=== PATIENT | female | born 1955 | race Native Hawaiian/Other Pacific Islander ===

== ENCOUNTER 2016-09-13 08:12 | Outpatient (CLI) | payer OTHER ==
[~2016-09-13 08:12] MED LIST: CELEXA20 MG PO; HYDR12.54 PO; LISI20TA24 PO; VESICARE5 MG PO; WARF10TA5 PO; ZANTAC300 MG PO
[2016-09-13] MEDS ORDERED: LISI20TA31 OR (09:08)
[2016-09-13] MEDS ORDERED: HYDR12.54 PO (09:11)
[2016-09-13] MEDS ORDERED: MELOXICAM15 MG OR (09:14)
[2016-09-13] MEDS ORDERED: CARV3.12 PO (09:14)
[2016-09-13] MEDS ORDERED: FURO20TA67 PO (09:15)
[2016-09-13] MEDS ORDERED: CENTRUM SILVER OR (09:15)
[2016-09-13] MEDS ORDERED: EQ ASPIRIN325 MG OR (09:16)
[2016-09-13] MEDS ORDERED: ZANTAC 75 PO (09:17)
[2016-09-13] MEDS ORDERED: METFTAB PO (09:17)
[2016-09-13] MEDS ORDERED: TRAM50TA PO (09:18)
== END 2016-09-13 08:31 | disposition short-term general hospital (02) ==
LOC: AMB 08:12
DX: R53.1 Weakness (principal)
CPT/HCPCS: A0425; A0427

== ENCOUNTER 2016-09-13 08:32 | Observation (INO) | payer OTHER ==
[2016-09-13] VITALS (15 sets, daily range): BP systolic 129–164; BP diastolic 72–108; TEMP 97.9–98.1; Ht 176.5 cm; Wt 158.3 kg
[~2016-09-13] VITALS: Ht 176.5 cm; Wt 158.3 kg
[2016-09-13] MEDS ORDERED: LISI20TA31 OR (09:08)
[2016-09-13] MEDS ORDERED: HYDR12.54 PO (09:11)
[2016-09-13] MEDS ORDERED: CARV3.12 PO (09:14)
[2016-09-13] MEDS ORDERED: MELOXICAM15 MG OR (09:14)
[2016-09-13] MEDS ORDERED: FURO20TA67 PO (09:15)
[2016-09-13] MEDS ORDERED: CENTRUM SILVER OR (09:15)
[2016-09-13] MEDS ORDERED: EQ ASPIRIN325 MG OR (09:16)
[2016-09-13] MEDS ORDERED: METFTAB PO (09:17)
[2016-09-13] MEDS ORDERED: ZANTAC 75 PO (09:17)
[2016-09-13] MEDS ORDERED: TRAM50TA PO (09:18)
[2016-09-13 10:02] LABS: PLATELET COUNT 231 K/uL (152-353)
[2016-09-13 10:10] LABS: POTASSIUM 3.8 mmol/L (3.6-5.2); SODIUM 135 mmol/L (136-145)
[2016-09-13 11:56] LABS: PARTIAL THROMBOPLASTIN TIME 25.2 SECONDS (24.5-33.6)
[2016-09-14] VITALS: BP 139/72; TEMP 97.8
[2016-09-14 04:00] VITALS: BP 144/91; TEMP 97.4
[2016-09-14 05:19] LABS: PLATELET COUNT 229 K/uL (152-353)
[2016-09-14 05:36] LABS: POTASSIUM 3.4 mmol/L (3.6-5.2); SODIUM 134 mmol/L (136-145)
[2016-09-14 08:00] VITALS: BP 154/84; TEMP 96.6
[2016-09-14 12:00] VITALS: BP 152/83; TEMP 97.9
[2016-09-14 16:00] VITALS: BP 152/83; TEMP 98
[2016-09-14 20:00] VITALS: BP 127/77; TEMP 97.9
[2016-09-15 00:04] VITALS: BP 111/66; TEMP 97.9
[2016-09-15 05:48] VITALS: BP 144/86; TEMP 97.6
[2016-09-15 06:39] LABS: POTASSIUM 3.5 mmol/L (3.6-5.2); SODIUM 133 mmol/L (136-145)
[2016-09-15 06:59] LABS: PLATELET COUNT 253 K/uL (152-353)
[2016-09-15 08:00] VITALS: BP 143/97; TEMP 97.5
[2016-09-15 12:00] VITALS: BP 148/87; TEMP 98
== END 2016-09-15 14:25 | disposition home or self-care (01) ==
LOC: ED 08:32 → MED/SURG 12:57
PROVIDERS: Emergency Medicine; ADMIT Specialist
DX: G45.8 Other transient cerebral ischemic attacks and related syndromes (principal); E11.9 Type 2 diabetes mellitus without complications; I10 Essential (primary) hypertension; R53.1 Weakness; R13.12 Dysphagia, oropharyngeal phase
CPT/HCPCS: 36415; 36600; 80048; 80053; 80061; 82550; 82553; 82805; 82948; 83605; 83735; 84100; 84484; 85027; 85610; 85730; 93005; 94760; 99220; 99285; G0378

== ENCOUNTER 2016-09-30 20:06 | Emergency (ER) | payer OTHER ==
[~2016-09-30] VITALS: Ht 175.3 cm; Wt 161.0 kg
[~2016-09-30 20:06] MED LIST changes: +CARV3.12 PO; +CENTRUM SILVER OR; +EQ ASPIRIN325 MG OR; +FURO20TA67 PO; +LISI20TA31 OR; +MELOXICAM15 MG OR; +METFTAB PO; +TRAM50TA PO; +ZANTAC 75 PO
[2016-09-30 21:38] LABS: PLATELET COUNT 272 K/uL (152-353)
[2016-09-30 21:49] LABS: SODIUM 137 mmol/L (136-145)
[2016-09-30 23:04] VITALS: BP 146/78; TEMP 97.7
== END 2016-09-30 23:00 | disposition home or self-care (01) ==
LOC: ED 20:06
PROVIDERS: Specialist
DX: G25.2 Other specified forms of tremor (principal); R20.9 Unspecified disturbances of skin sensation
CPT/HCPCS: 36415; 80053; 84484; 85027; 93005; 96374; 96375; 99284; J2405

== ENCOUNTER 2020-09-28 05:57 | Emergency (ER) | payer OTHER ==
[~2020-09-28] VITALS: Ht 175.3 cm; Wt 146.1 kg
[2020-09-28 06:55] VITALS: BP 134/95; TEMP 98.5
== END 2020-09-28 06:55 | disposition home or self-care (01) ==
LOC: ED 05:57
DX: B02.9 Zoster without complications (principal)
CPT/HCPCS: 96372; 99283; J1170